=== PATIENT | male | born 1975 | race Caucasian/White ===

== ENCOUNTER 2016-10-02 22:34 | Observation (INO) | payer SELFPAY ==
[2016-10-02 23:39] LABS: BASO % 0.3 % (0.0-2.0); EOS % 0.2 % (0.0-4.0); HEMATOCRIT 43.6 % (35.0-51.0); LYMPH # 1.3 K/uL (1.0-4.3); MEAN CELL VOLUME 89.4 fL (80.0-94.0); MEAN CORPUSCULAR HEMOGLOBIN 30.1 pg (27.0-31.0); MEAN CORPUSCULAR HGB CONC 33.7 g/dL (33.0-37.0); MEAN PLATELET VOLUME 7.4 fL (7.2-11.7); MONO # 0.6 K/uL (0.0-0.8); MONO % 7.9 % (0.0-10.0); NRBC % 0.1 % (0.0-2.0); RED CELL DISTRIBUTION WIDTH 13.6 % (11.5-14.5); WHITE BLOOD COUNT 7.3 K/uL (4.8-10.8)
[2016-10-02 23:41] LABS: URINE BILIRUBIN NEGATIVE (NEGATIVE); URINE BLOOD 3+ (NEGATIVE); URINE COLOR Straw (YELLOW); URINE GLUCOSE (UA) NORMAL (Normal); URINE KETONE TRACE mg/dL (NEGATIVE); URINE LEUKOCYTE ESTERASE NEG Leu/uL (Negative); URINE PROTEIN 2+ mg/dL (NEGATIVE); URINE UROBILINOGEN NORMAL mg/dL (0.2-1.0); WBC URINE < 1 /hpf (0-5)
[2016-10-02 23:42] LABS: RBC URINE < 1 /hpf (0-3); URINE BACTERIA RARE (<OCC)
[2016-10-02 23:47] LABS: CHLORIDE 90 mmol/L (98-107); POTASSIUM 3.9 mmol/L (3.6-5.2); SODIUM 135 mmol/L (132-148)
[2016-10-02 23:49] LABS: BILIRUBIN,TOTAL 0.9 mg/dL (0.2-1.3); CARBON DIOXIDE 24 mmol/L (22-30); GFR AFRICAN-AMERICAN > 60
[2016-10-02 23:50] LABS: ALKALINE PHOSPHATASE 84 U/L (38-126); ALT/SGPT 94 U/L (21-72); AST/SGOT 172 U/L (17-59); BLOOD UREA NITROGEN 9 mg/dL (9-20); CALCIUM 8.5 mg/dl (8.6-10.4); GLUCOSE,RANDOM 135 mg/dL (75-110); TOTAL PROTEIN 8.8 g/dL (6.3-8.3)
[2016-10-03 00:10] LABS: ALCOHOL SERUM 468 mg/dl (0-10)
--- NOTE | 2016-10-03 02:56 | C.PDOC ---
History Of Present Illness <Saranya Waggoner - Last Filed: 10/03/16 04:03> <Elliott Alfaro - Last Filed: 10/03/16 09:10> 40 year old male presents to the ED seeking detox for alcohol abuse. Patient admits to drinking with a friend prior to arrival and is intoxicated. He denies any suicidal thoughts or physical complaints at this time. (Sarnaya Waggoner) History Per: Patient History/Exam Limitations: no limitations Onset/Duration Of Symptoms: Hrs Current Symptoms Are (Timing): Still Present Suicide/Self Injury Attempted (Context): None Modifying Factor(s): Alcohol Associated Symptoms: denies: Suicidal Thoughts, Suicidal Plan Involuntary Hold By: None Recent travel outside of the [place]: No <Saranya Waggoner - Last Filed: 10/03/16 04:03> <Elliott Alfaro - Last Filed: 10/03/16 09:10> Time Seen by Provider: 10/02/16 23:11 Chief Complaint (Nursing): Substance Abuse Past Medical History Reviewed: Historical Data, Nursing Documentation, Vital Signs Family History: States: Unknown Family Hx - Social History Hx Tobacco Use: No Hx Alcohol Use: Yes Hx Substance Use: No - Immunization History Hx Tetanus Toxoid Vaccination: No Hx Influenza Vaccination: No Hx Pneumococcal Vaccination: No <Saranya Waggoner - Last Filed: 10/03/16 04:03> Review Of Systems Constitutional: Negative for: Fever, Chills Cardiovascular: Negative for: Chest Pain, Palpitations Respiratory: Negative for: Cough, Shortness of Breath Gastrointestinal: Negative for: Nausea, Vomiting, Abdominal Pain, Diarrhea Psych: Negative for: Suicidal ideation <Saranya Waggoner - Last Filed: 10/03/16 04:03> Physical Exam - Physical Exam Appears: Non-toxic, No Acute Distress Skin: Warm, Dry Head: Atraumatic Eye(s): bilateral: Normal Inspection, PERRL, EOMI Oral Mucosa: Moist Chest: Symmetrical, No Deformity Cardiovascular: Rhythm Regular Respiratory: No Rales, No Rhonchi, No Stridor, No Wheezing Gastrointestinal/Abdominal: Soft, No Tenderness, No Distention, No Guarding, No Rebound Extremity: Normal ROM, No Tenderness Neurological/Psych: Oriented x3 <Saranya Waggoner - Last Filed: 10/03/16 04:03> ED Course And Treatment - Laboratory Results Result Diagrams: 10/02/16 23:36 10/02/16 23:36 O2 Sat by Pulse Oximetry: 96 (room air ) <Saranya Waggoner - Last Filed: 10/03/16 04:03> - Laboratory Results Result Diagrams: 10/02/16 23:36 10/02/16 23:36 <Elliott Alfaro - Last Filed: 10/03/16 09:10> Medical Decision Making <Saranya Waggoner - Last Filed: 10/03/16 04:03> <Elliott Alfaro - Last Filed: 10/03/16 09:10> Medical Decision Makinam disc w psych service- pt not cleared for dc from their standpoint. pt is now clinically sober, ambulatory w steady gait. (Elliott Alfaro) ED OBSERVATION Date of observation admission: 10/02/16 Time of observation admission: 23:55 <Saranya Waggoner - Last Filed: 10/03/16 04:03> <Elliott Alfaro - Last Filed: 10/03/16 09:10> - Observation admission statement Patient is being placed in observation because:: intoxicated (Saranya Waggoner) - Goals of Observation Goals of observation are:: sobriety (Saranya Waggoner) - Progress Note Progress Note: 10/03/16 11:55 patient resting comfortably in no acute distress. (Saranya Waggoner) Disposition <Saranya Waggoner - Last Filed: 10/03/16 04:03> - Disposition Disposition Time: 09:10 <Elliott Alfaro - Last Filed: 10/03/16 09:10> - Disposition Disposition: HOME/ ROUTINE Condition: STABLE - Clinical Impression Clinical Impression: Alcohol intoxication - Scribe Statement The provider has reviewed the documentation as recorded by the Scribe <Saranya Waggoner - Last Filed: 10/03/16 04:03> <Elliott Alfaro - Last Filed: 10/03/16 09:10> - Scribe Statement Kia Lovelace All medical record entries made by the Scribe were at my direction and personally dictated by me. I have reviewed the chart and agree that the record accurately reflects my personal performance of the history, physical exam, medical decision making, and the department course for this patient. I have also personally directed, reviewed, and agree with the discharge instructions and disposition. (Saranya Waggoner)
[2016-10-03 05:00] VITALS: TEMP 98.7
[2016-10-03 09:30] VITALS: BP 120/72; PULSE 98; RESP 16; O2SAT 96
== END 2016-10-03 09:30 | disposition home or self-care (01) ==
LOC: C.ER 22:34 → C.9OBSV 10-03 00:50
PROVIDERS: ADMIT Emergency Medicine; ATTEND Emergency Medicine
DX: F10.120 Alcohol abuse with intoxication, uncomplicated (principal); Y90.8 Blood alcohol level of 240 mg/100 ml or more
CPT/HCPCS: 80053; 81001; 85025; 99285; G0378; G0480